=== PATIENT | female | born 1935 | race Caucasian/White ===

== ENCOUNTER 2019-07-19 09:36 | Inpatient (IN) | payer OTHER, BC ==
[~2019-07-19] VITALS: Ht 162.6 cm; Wt 100.2 kg
[2019-07-19] MEDS ORDERED: GLIPIZIDE XL5 MG (09:51)
[2019-07-19] MEDS ORDERED: CARDURA XL8 MG PO (09:52)
[2019-07-19] MEDS ORDERED: ELIQUIS PO (09:52)
[2019-07-19] MEDS ORDERED: COZAAR100 MG PO (09:53)
--- NOTE | 2019-07-19 09:58 | NUR ---
PACIENTE ALERTA Y ORIENTADA EN LAS AMOS ESFERAS, LA MISMA INDICA DOLOR LEVE ABDOMINAL DESDE HACE DOS SEMANAS APROXIMADAMENTE. SE COLOCA PACIENTE EN AREA DE ABI PARA EVALUACION MEDICA
--- NOTE | 2019-07-19 11:11 | NUR ---
PACIENTE ALERTA Y ORIENTADA EN SAMUEL AMOS ESFERAS. MS. CROW ORIENTA A PACIENTE SOBRE PROCEDIMIENTO, REFIERE ENTENDER. EXTRAE MUESTRAS DE LABORATORIO CON MEDIDAS ASEPTICAS Y SE ENVIA A LABORATORIO. SE NOTIFICA CT HEAD.
--- NOTE | 2019-07-19 12:30 | NUR ---
SE RECIBE PTE LA CUAL LLEGA EN ABI DEL AREA DE OBSERVACION CON MIGNON. LA MISMA ES COLOCADA EN ABI #17, CONECTADA A MONITOR CARDIACO Y OXIMETRIA DE PULSO. AL MOMENTO SE OBSERVA PTE LEVEMENTE AGITADA, EN COMPANIA DE FAMILIAR. PIEL TIBIA AL TACTO. MANTENIENDO BUEN PATRON RESPIRATORIO Y SATURANDO 96%. H/L EN MANO LT #18 CON FECHA DE 07/19/19, PATENTE Y PARK DE EDEMA O ERITEMA. PTE ES EVALUADA POR EL DR Shaq CROW QUIEN ORDENA COLOCAR MARCAPASO EXTERNO, AL MOMENTO MANTIENE PULSO 48-52 L/MIN. SE COLOCA MARCAPASO EXTERNO HARRY ORDEN MEDICA EL A 12MA, 45PPM, AL MOMENTO PTE TOLERA EL MISMO. SE REPITE EKG Y SE PRESENTA AL DR CROW. SE MANTIENE BAJO OBSERVACION CONECTADA A MONITOR CARDIACO, OXIMETRIA DE PULSO Y MARCAPASO EXTERNO. B/P MANUAL 170/90, SE NOTIFICA AL DR Shaq CROW QUIEN ORDENA TX. SE ADMINISTRA EL MISMO. PTE PENDIENTE A SER CONSULTADA CON MEDICINA INTERNA HARRY INDICA DR CROW. SE COLOCA TRIVEDI HARRY ORDEN MEDICA DEL DR Shaq CROW CON LA ASISTENCIA DE MS S CLINE, PTE TOLERA EL MISMO, AL MOMENTO ELIMINA APROXIMADAMENTE 300ML COLOR AMARILLO ALBIN.
--- NOTE | 2019-07-19 15:30 | NUR ---
PT ALERTA Y ORIENTADA X3 ESFERAS, SE RECIBE EN ABI CON BARANDAS ELEVADAS Y FRENOS COLOCADOS, EN UNIDAD DE DOLOR DE PECHO, CUBICULO 17. PT ISIDRO AL MOMENTO. CONECTADA A MONITOR CARDIACO 58/MIN Y SATUROMETRO DE PULSO 98%, 18RR. AL MOMENTO CONECTADA A DEFIBRILADOR KVNG MARCAPASO EXTERNO CON ELECTRICIDAD 12MA / 45PPM. RESPIRACIONES ESPONTANEAS. PULMONES SE AUSCULTAN SUZIE. ABDOMEN BLANDO. TRIVEDI CATETER PATENTE, DRENANDO LA ORINA COLOR KARLOS, AL MOMENTO 100ML OUTPUT. EXTREMIDADES INFERIORES CON EDEMA NIVEL 2, PARK MOVIMIENTO DE AMBAS PIERNAS. EXTREMIDADES SUPERIORES CON EDEMA NIVEL 1, PARK MOVIMEITNO EN AMABOS BRAZOS. HEPARIN LOCK EN MANO IZQUIERDA CON ANGIO 18 PATENTE PARK DE EDEMA Y/O ERITEMA. PT TOLERA TX, TRANQUILA Y SIN DIFICULTAD RESPIRATORIA. SE MANTIENE BAJO OBSERVACION POR CAMBIOS EN LUPE. PENDIENTE VISITA DE INTERNISTA DR VILLAFANA.
== END 2019-07-21 16:40 | disposition designated cancer center or children's hospital (05) | DRG 309 ==
LOC: ER 09:36 → ICU-2 20:01
PROVIDERS: ADMIT Internal Medicine
PROC: 0T9B70Z Drainage of Bladder with Drainage Device, Via Natural or Artificial Opening (ICD-10-PCS; principal; 2019-07-19)
DX: I44.2 Atrioventricular block, complete (principal); N17.8 Other acute kidney failure; E11.22 Type 2 diabetes mellitus with diabetic chronic kidney disease; I12.9 Hypertensive chronic kidney disease with stage 1 through stage 4 chronic kidney disease, or unspecified chronic kidney disease; N18.3 Chronic kidney disease, stage 3 (moderate); R31.29 Other microscopic hematuria; Z79.4 Long term (current) use of insulin